=== PATIENT | male | born 1990 | race Caucasian/White ===

== ENCOUNTER 2018-04-17 12:08 | Inpatient (IN) | payer MEDICAID, OTHER ==
[~2018-04-17] VITALS: Ht 177.8 cm; Wt 88.5 kg
[2018-04-17] MEDS ORDERED: PALI1.5T PO (12:19)
[2018-04-17] MEDS ORDERED: NICO-704 TD (12:25)
[2018-04-17] MEDS ORDERED: FOLI1 PO (12:25)
[2018-04-17] MEDS ORDERED: CLON.5 PO (12:25)
[2018-04-17] MEDS ORDERED: SUMA25TA9 PO (12:25)
[2018-04-17] MEDS ORDERED: PROP20TA18 PO (12:25)
[2018-04-17] MEDS ORDERED: ESCI20TA PO (12:25)
[2018-04-17] MEDS ORDERED: BACL10TA PO (12:25)
[2018-04-17] MEDS ORDERED: QUET300T2 PO (12:25)
[2018-04-17] MEDS ORDERED: THIA100T67 PO (12:25)
[2018-04-17 13:05] LABS: BASOPHILS % (AUTO) 1.9 % (0.0-2.0); EOSINOPHILS % (AUTO) 0.3 % (1.0-6.0); HEMOGLOBIN 15.4 g/dL (13.5-17.5); LYMPHOCYTES # (AUTO) 2.3 K/uL (1.0-4.8); LYMPHOCYTES % (AUTO) 37.2 % (22.0-44.0); MEAN CORPUSCULAR HEMOGLOBIN 30.5 pg (26.0-34.0); MEAN CORPUSCULAR VOLUME 87 fL (80-100); MONOCYTES # (AUTO) 0.4 K/uL (0.1-1.0); MONOCYTES % (AUTO) 7.2 % (2.0-9.0); NEUTROPHILS # (AUTO) 3.2 K/uL (1.8-7.7); NEUTROPHILS % (AUTO) 53.4 % (40.0-70.0); PLATELET COUNT (AUTO) 414 K/uL (150-450); RED BLOOD CELL COUNT(AUTO) 5.04 MIL/uL (4.50-5.90); RED CELL DISTRIBUTION WIDTH 13.1 % (11.5-14.5)
[2018-04-17 13:19] LABS: ANION GAP 10 mmol/L (8-16); CALCIUM, TOTAL 9.1 mg/dL (8.8-10.5); CARBON DIOXIDE 25 mmol/L (22-29); CHLORIDE 101 mmol/L (98-107); CREATININE 0.92 mg/dL (0.60-1.30); GLOMERULAR FILTR. RATE CALC > 60 mL/min (>60); GLUCOSE,RANDOM 112 mg/dL (70-110); POTASSIUM 3.7 mmol/L (3.5-5.1); SODIUM SERUM 136 mmol/L (136-145); UREA NITROGEN, BLOOD 5 mg/dL (7-18)
[2018-04-17 13:26] LABS: ALANINE AMINOTRANSFERASE 222 U/L (12-78); ALBUMIN 4.4 g/dL (3.4-5.0); ALKALINE PHOSPHATASE 124 U/L (46-116); ASPARTATE AMINOTRANSFERASE 85 U/L (15-37); BILIRUBIN,TOTAL 0.7 mg/dL (0.1-1.0); TOTAL PROTEIN, SERUM 8.2 g/dL (6.4-8.2)
[2018-04-17] MEDS ORDERED: ZOLPIDEM TARTRATE 10 MG TABLET PO PRN (13:45)
[2018-04-17] MEDS ORDERED: HALOPERIDOL 5 MG TABLET PO PRN (13:45)
[2018-04-17 16:22] LABS: AMPHET/METH SCREEN,URINE NEGATIVE (NEGATIVE); BARBITURATE SCREEN, URINE NEGATIVE (NEGATIVE); BENZODIAZEPINES SCREEN,URINE POSITIVE (NEGATIVE); CANNABINOID SCREEN,URINE NEGATIVE (NEGATIVE); COCAINE SCREEN,URINE NEGATIVE (NEGATIVE); METHADONE SCREEN, URINE NEGATIVE (NEGATIVE); OPIATE SCREEN,URINE NEGATIVE (NEGATIVE)
[2018-04-17 16:24] LABS: PHENCYCLIDINE SCREEN,URINE NEGATIVE (NEGATIVE)
[2018-04-17] MEDS ORDERED: ACETAMINOPHEN 325 MG TABLET PO PRN (19:00)
[2018-04-17 19:08] VITALS: BP 141/76
[2018-04-17] MEDS: LORazepam 2 MG TABLET PO PRN (21:03)
[2018-04-18 03:37] VITALS: BP 136/72
[2018-04-18 08:09] VITALS: BP 142/68
[2018-04-18] MEDS: LORazepam 2 MG TABLET PO PRN ×2 (09:14→17:46)
[2018-04-18] MEDS: NICOTINE 21 MG/24 HOUR PATCH TD SCH (09:15)
[2018-04-18] MEDS: ESCITALOPRAM OXALATE 20 MG TABLET PO SCH (12:30)
[2018-04-18] MEDS: PALIPERIDONE 6 MG ER TABLET PO SCH (12:31)
[2018-04-18 16:36] VITALS: BP 125/70
[2018-04-18] MEDS ORDERED: QUEtiapine FUMARATE 300 MG TABLET PO SCH (21:00)
[2018-04-19 05:21] VITALS: BP 120/81
[2018-04-19 08:35] VITALS: BP 135/67
[2018-04-19 08:38] LABS: CHOL/HDL RATIO 3.7 (4.2-7.3)
[2018-04-19] MEDS: PALIPERIDONE 6 MG ER TABLET PO SCH ×2 (08:46→16:49)
[2018-04-19] MEDS: NICOTINE 21 MG/24 HOUR PATCH TD SCH (08:47)
[2018-04-19] MEDS: ESCITALOPRAM OXALATE 20 MG TABLET PO SCH (08:47)
[2018-04-19 16:05] VITALS: BP 125/73
[2018-04-19] MEDS: LORazepam 2 MG TABLET PO PRN (16:49)
[2018-04-19] MEDS: QUEtiapine FUMARATE 200 MG TABLET PO SCH (20:35)
[2018-04-20 01:31] VITALS: BP 112/63
[2018-04-20 08:14] LABS: FREE T4 (FREE THYROXINE) 0.87 ng/dL (0.76-1.46); THYROID STIMULATING HORMONE 1.68 uIU/mL (0.36-3.74)
[2018-04-20] MEDS: NICOTINE 21 MG/24 HOUR PATCH TD SCH (08:17)
[2018-04-20] MEDS: PALIPERIDONE 6 MG ER TABLET PO SCH ×2 (08:18→16:26)
[2018-04-20] MEDS: ESCITALOPRAM OXALATE 20 MG TABLET PO SCH (08:18)
[2018-04-20 08:19] VITALS: BP 120/63
[2018-04-20 08:24] LABS: HEMOGLOBIN A1C 5.2 % (4.5-6.2)
[2018-04-20] MEDS: LORazepam 2 MG TABLET PO PRN (16:26)
[2018-04-20 18:29] VITALS: BP 115/75
[2018-04-20] MEDS: QUEtiapine FUMARATE 200 MG TABLET PO SCH (20:02)
[2018-04-21 02:45] VITALS: BP 118/78
[2018-04-21 08:21] VITALS: BP 113/68
[2018-04-21] MEDS: ESCITALOPRAM OXALATE 20 MG TABLET PO SCH (09:15)
[2018-04-21] MEDS: PALIPERIDONE 6 MG ER TABLET PO SCH (09:16)
[2018-04-21] MEDS: NICOTINE 21 MG/24 HOUR PATCH TD SCH (09:21)
[2018-04-21] MEDS ORDERED: PALI6 PO (12:21)
[2018-04-21] MEDS ORDERED: TRAZ-219 PO (12:23)
[2018-04-21] MEDS ORDERED: QUET200T PO (12:23)
[2018-04-21] MEDS ORDERED: TraZODone HCL 50 MG TABLET PO SCH (21:00)
== END 2018-04-21 13:40 | disposition home or self-care (01) | DRG 750 ==
LOC: EMS 12:10 → B2S 16:03
PROVIDERS: ADMIT Psychiatry & Neurology Child & Adolescent Psychiatry; ATTEND Psychiatry & Neurology Child & Adolescent Psychiatry
DX: F25.0 Schizoaffective disorder, bipolar type (principal); R45.851 Suicidal ideations; R74.0 Nonspecific elevation of levels of transaminase and lactic acid dehydrogenase [LDH]; F17.210 Nicotine dependence, cigarettes, uncomplicated; G43.909 Migraine, unspecified, not intractable, without status migrainosus; R73.9 Hyperglycemia, unspecified; F41.9 Anxiety disorder, unspecified
CPT/HCPCS: 80074; 83036; 84439; 84443; G0480

== ENCOUNTER 2018-06-06 15:59 | Inpatient (IN) | payer OTHER, MEDICAID ==
[~2018-06-06] VITALS: Ht 177.8 cm; Wt 96.8 kg
[~2018-06-06 15:59] MED LIST: ESCI20TA PO; PALI6 PO; QUET200T PO; TRAZ-219 PO
[2018-06-06] MEDS ORDERED: MET750 PO (16:56)
[2018-06-06] MEDS ORDERED: CLON.5 PO (16:56)
[2018-06-06] MEDS ORDERED: VENL-68 PO (16:56)
[2018-06-06] MEDS ORDERED: BREX2TAB PO (16:56)
[2018-06-06] MEDS ORDERED: CLOZ100 PO (16:56)
[2018-06-06] MEDS ORDERED: FOLI1 PO (16:56)
[2018-06-06] MEDS ORDERED: TRAZ150 PO (16:56)
[2018-06-06] MEDS ORDERED: PALI234D IM (16:56)
[2018-06-06] MEDS ORDERED: SUMA100T PO (16:56)
[2018-06-06] MEDS ORDERED: PROP20TA18 PO (16:56)
[2018-06-06] MEDS ORDERED: LITH300C3 PO (16:56)
[2018-06-06] MEDS ORDERED: GABA-533 PO (16:56)
[2018-06-06 17:20] LABS: BASOPHILS % (AUTO) 1.1 % (0.0-2.0); EOSINOPHILS % (AUTO) 7.5 % (1.0-6.0); HEMATOCRIT 43.3 % (41-53); LYMPHOCYTES # (AUTO) 3.2 K/uL (1.0-4.8); LYMPHOCYTES % (AUTO) 26.2 % (22.0-44.0); MEAN CORPUSCULAR HGB CONC 34.5 G/dL (31.0-37.0); MEAN CORPUSCULAR VOLUME 87 fL (80-100); MONOCYTES # (AUTO) 0.7 K/uL (0.1-1.0); MONOCYTES % (AUTO) 5.7 % (2.0-9.0); NEUTROPHILS # (AUTO) 7.3 K/uL (1.8-7.7); NEUTROPHILS % (AUTO) 59.5 % (40.0-70.0); PLATELET COUNT (AUTO) 519 K/uL (150-450); RED BLOOD CELL COUNT(AUTO) 4.99 MIL/uL (4.50-5.90); RED CELL DISTRIBUTION WIDTH 12.8 % (11.5-14.5)
[2018-06-06 17:37] LABS: ANION GAP 12 mmol/L (8-16); CALCIUM, TOTAL 9.4 mg/dL (8.8-10.5); CARBON DIOXIDE 25 mmol/L (22-29); CHLORIDE 103 mmol/L (98-107); CREATININE 0.94 mg/dL (0.60-1.30); GLOMERULAR FILTR. RATE CALC > 60 mL/min (>60); GLUCOSE,RANDOM 89 mg/dL (70-110); POTASSIUM 3.9 mmol/L (3.5-5.1); SODIUM SERUM 140 mmol/L (136-145); UREA NITROGEN, BLOOD 8 mg/dL (7-18)
[2018-06-06 17:43] LABS: ALANINE AMINOTRANSFERASE 84 U/L (12-78); ALBUMIN 4.1 g/dL (3.4-5.0); ALKALINE PHOSPHATASE 108 U/L (46-116); ASPARTATE AMINOTRANSFERASE 41 U/L (15-37); BILIRUBIN,TOTAL 0.3 mg/dL (0.1-1.0); TOTAL PROTEIN, SERUM 7.8 g/dL (6.4-8.2)
[2018-06-06 18:16] LABS: AMPHET/METH SCREEN,URINE NEGATIVE (NEGATIVE); BARBITURATE SCREEN, URINE NEGATIVE (NEGATIVE); BENZODIAZEPINES SCREEN,URINE NEGATIVE (NEGATIVE); CANNABINOID SCREEN,URINE NEGATIVE (NEGATIVE); COCAINE SCREEN,URINE NEGATIVE (NEGATIVE); METHADONE SCREEN, URINE NEGATIVE (NEGATIVE); OPIATE SCREEN,URINE NEGATIVE (NEGATIVE)
[2018-06-06 18:18] LABS: PHENCYCLIDINE SCREEN,URINE NEGATIVE (NEGATIVE)
[2018-06-06] MEDS ORDERED: ZOLPIDEM TARTRATE 10 MG TABLET PO PRN (18:45)
[2018-06-06] MEDS ORDERED: HALOPERIDOL 5 MG TABLET PO PRN (18:45)
[2018-06-07 00:10] VITALS: BP 120/72
[2018-06-07 08:30] LABS: HEMOGLOBIN A1C 5.5 % (4.5-6.2)
[2018-06-07] MEDS: LORazepam 2 MG TABLET PO PRN ×2 (08:33→16:27)
[2018-06-07 08:37] LABS: CHOL/HDL RATIO 3.8 (4.2-7.3); FREE T4 (FREE THYROXINE) 0.87 ng/dL (0.76-1.46); THYROID STIMULATING HORMONE 1.54 uIU/mL (0.36-3.74)
[2018-06-07 08:56] VITALS: BP 140/80
[2018-06-07 17:00] VITALS: BP 111/69
[2018-06-07] MEDS: CloZAPine 100 MG TABLET PO SCH (21:33)
[2018-06-07] MEDS: LITHIUM CARBONATE 450 MG ER TABLET PO SCH (21:33)
[2018-06-08 00:29] VITALS: BP_SYST 118; BP_SYST 124; BP_DIAS 62; BP_DIAS 76
[2018-06-08 08:27] LABS: BAND NEUTROPHILS % (MANUAL) 0 % (0-5)
[2018-06-08] MEDS: ASPIRIN 81 MG EC TABLET PO SCH ×2 (08:29→16:28)
[2018-06-08] MEDS: CloZAPine 100 MG TABLET PO SCH ×2 (08:29→20:27)
[2018-06-08 08:32] VITALS: BP 120/63
[2018-06-08 08:35] LABS: HEMATOCRIT 41.8 % (41-53); HEMOGLOBIN 14.4 g/dL (13.5-17.5); MEAN CORPUSCULAR HEMOGLOBIN 30.1 pg (26.0-34.0); MEAN CORPUSCULAR HGB CONC 34.3 G/dL (31.0-37.0); MEAN CORPUSCULAR VOLUME 88 fL (80-100); PLATELET COUNT (AUTO) 432 K/uL (150-450); RED BLOOD CELL COUNT(AUTO) 4.77 MIL/uL (4.50-5.90); RED CELL DISTRIBUTION WIDTH 12.8 % (11.5-14.5)
[2018-06-08 09:11] LABS: ANION GAP 9 mmol/L (8-16); CALCIUM, TOTAL 9.4 mg/dL (8.8-10.5); CARBON DIOXIDE 27 mmol/L (22-29); CHLORIDE 105 mmol/L (98-107); GLOMERULAR FILTR. RATE CALC > 60 mL/min (>60); GLUCOSE,RANDOM 93 mg/dL (70-110); PHOSPHORUS 3.8 mg/dL (2.5-4.9); POTASSIUM 4.5 mmol/L (3.5-5.1); SODIUM SERUM 141 mmol/L (136-145); UREA NITROGEN, BLOOD 10 mg/dL (7-18)
[2018-06-08] MEDS: NICOTINE 21 MG/24 HOUR PATCH TD SCH (09:12)
[2018-06-08 09:43] LABS: EOSINOPHILS % (MANUAL) 1 % (1-6); LYMPHOCYTES % (MANUAL) 14 % (22-44); MONOCYTES % (MANUAL) 5 % (2-9); SEGMENTED NEUTROPHILS % 80 % (40-70)
[2018-06-08] MEDS: LORazepam 2 MG TABLET PO PRN ×3 (12:31→20:28)
[2018-06-08 16:48] VITALS: BP 132/84
[2018-06-08] MEDS: LITHIUM CARBONATE 450 MG ER TABLET PO SCH (20:28)
[2018-06-09] MEDS: CloZAPine 100 MG TABLET PO SCH (08:28)
[2018-06-09 10:01] VITALS: BP 110/63
[2018-06-09] MEDS: NICOTINE 21 MG/24 HOUR PATCH TD SCH (10:13)
[2018-06-09] MEDS: ASPIRIN 81 MG EC TABLET PO SCH ×2 (10:14→16:20)
[2018-06-09] MEDS ORDERED: CLOZ100 PO (13:36)
[2018-06-09] MEDS ORDERED: LOPERAMIDE HCL 2 MG CAPSULE PO PRN (20:00)
[2018-06-09] MEDS ORDERED: PETROLATUM,WHITE 28 GM JELLY TP PRN (20:00)
[2018-06-09] MEDS ORDERED: OMEPRAZOLE 20 MG CAPSULE PO PRN (20:00)
[2018-06-09] MEDS ORDERED: BACITRACIN 28.4 GM OINTMENT TP PRN (20:00)
[2018-06-09] MEDS ORDERED: MAGNESIUM HYDROXIDE SUSPENSION 30 ML UDCUP PO PRN (20:00)
[2018-06-09] MEDS ORDERED: CloNIDine HCL 0.1 MG TABLET PO PRN (20:00)
[2018-06-09] MEDS ORDERED: MAG HYDROX/AL HYDROX/SIMETH ES 30 ML SUSPENSION UDCUP PO PRN (20:00)
[2018-06-09] MEDS ORDERED: IBUPROFEN 600 MG TABLET PO PRN (20:00)
[2018-06-09] MEDS ORDERED: BENZOCAINE/MENTHOL LOZENGE MM PRN (20:00)
[2018-06-09] MEDS ORDERED: ONDANSETRON HCL 4 MG TABLET PO PRN (20:00)
[2018-06-09] MEDS ORDERED: DOCUSATE SODIUM 100 MG CAPSULE PO PRN (20:00)
[2018-06-09] MEDS ORDERED: ACETAMINOPHEN 325 MG TABLET PO PRN (20:00)
[2018-06-09] MEDS ORDERED: ALBUTEROL SULFATE HFA 90 MCG/PUFF 8 GM INHALER IH PRN (20:00)
[2018-06-15] MEDS ORDERED: ASPIRIN 81 MG EC TABLET PO SCH (09:00)
== END 2018-06-09 17:05 | disposition home or self-care (01) | DRG 885 ==
LOC: EMS 16:00 → B2S 21:00 → B2X 06-09 09:33
PROVIDERS: ADMIT Psychiatry & Neurology Psychiatry; ATTEND Psychiatry & Neurology Psychiatry
DX: F25.0 Schizoaffective disorder, bipolar type (principal); R45.851 Suicidal ideations; F41.9 Anxiety disorder, unspecified; G47.00 Insomnia, unspecified; K59.00 Constipation, unspecified; F17.200 Nicotine dependence, unspecified, uncomplicated; D72.829 Elevated white blood cell count, unspecified; F32.9 Major depressive disorder, single episode, unspecified; R79.89 Other specified abnormal findings of blood chemistry; Z79.82 Long term (current) use of aspirin
CPT/HCPCS: 80074; 83036; 83735; 84100; 84439; 84443; 85007